=== PATIENT | female | born 1990 | race Hispanic/Latino ===

== ENCOUNTER 2023-08-12 10:33 | Inpatient (IN) | payer BC ==
[2023-08-11 11:53] LABS: Hematocrit 38.2 % (34.9-44.5); Hemoglobin 13.6 g/dL (12.0-15.5); Platelet Count 308 10x3/uL (150-450)
[2023-08-11 12:32] LABS: Syphilis Antibody Nonreactive (Nonreactive); Syphilis Antibody Index 0.03 S/CO (<1.00 Non-Reactive)
[2023-08-11 12:34] LABS: HBsAg Index 0.18 S/CO (0-0.99); Hep B Surf Ag Non-Reactive S/CO (NonReactive)
[2023-08-12 10:42] VITALS: BMI 38.7
[2023-08-12] MEDS ORDERED: Misoprostol 200 MCG TAB PR PRN (10:54)
[2023-08-12] MEDS ORDERED: Promethazine HCl 25 MG/ML VIAL IM PRN ×2 (10:54→11:15)
[2023-08-12] MEDS ORDERED: Tranexamic Acid 1,000 MG/10 ML VIAL IVP PRN (10:54)
[2023-08-12] MEDS ORDERED: Carboprost 250 MCG/ML AMP IM PRN (10:54)
[2023-08-12] MEDS ORDERED: Famotidine/PF 20 mg/2ml Vial SLOW IVP PRN (10:54)
[2023-08-12] MEDS ORDERED: hydrALAZINE 20 MG/ML VIAL SLOW IVP PRN ×2 (10:54→13:24)
[2023-08-12] MEDS ORDERED: Bicitra 30 ML UDCUP PO PRN (10:54)
[2023-08-12] MEDS ORDERED: Ondansetron PF 4 MG/2 ML Vial IVP PRN ×3 (10:54→11:15)
[2023-08-12] MEDS ORDERED: Oxytocin 30 units/NS 500 ML 500 ML IV SCH (11:00)
[2023-08-12] MEDS ORDERED: CEFAZOLIN 2 GM in Sodium Chloride 0.9% 100 ML IVPB SCH (11:00)
[2023-08-12] MEDS ORDERED: Naloxone HCl 0.4 mg/ml Vial IVP PRN ×2 (11:15)
[2023-08-12] MEDS ORDERED: Communication Order-Pharmacy FS SCH (11:15)
[2023-08-12] MEDS ORDERED: Ketorolac Tromethamine 30 MG (1 mL) VIAL IVP SCH (11:15)
[2023-08-12] MEDS ORDERED: fentaNYL 50 mcg/mL 1 mL Vial SLOW IVP PRN (11:15)
[2023-08-12] MEDS ORDERED: HYDROmorphone 0.5 MG/0.5 ML SYRINGE SLOW IVP PRN (11:15)
[2023-08-12] MEDS ORDERED: Moisturizing Cream (Eucerin) 113 GM JAR TOP PRN (11:15)
[2023-08-12] MEDS ORDERED: diphenhydrAMINE 50 MG/ML VIAL IVP PRN (11:15)
[2023-08-12] MEDS ORDERED: Meperidine HCl/PF 25 MG (1 mL) VIAL SLOW IVP PRN (11:15)
[2023-08-12] MEDS ORDERED: Naloxone HCl 0.4 mg/ml Vial IV PRN (11:15)
[2023-08-12] MEDS ORDERED: Bisacodyl 10 MG SUPP PR PRN (13:24)
[2023-08-12] MEDS ORDERED: Acetaminophen 325 MG TAB PO PRN (13:24)
[2023-08-12] MEDS ORDERED: Lanolin Ointment 7 GM TUBE TOP PRN (13:24)
[2023-08-12] MEDS ORDERED: diphenhydrAMINE 25 MG CAP PO PRN (13:24)
[2023-08-12] MEDS: fentaNYL 50 mcg/mL 1 mL Vial ONE (15:36)
[2023-08-12] MEDS: Ondansetron PF 4 MG/2 ML Vial ONE (15:36)
[2023-08-12] MEDS: Oxytocin 10 UNITS/ML VIAL ONE ×2 (15:36→15:37)
[2023-08-12] MEDS: Morphine PF 10 MG/10 ML VIAL ONE (15:36)
[2023-08-12] MEDS: Ketorolac Tromethamine 30 MG (1 mL) VIAL IVP PRN (15:36)
[2023-08-12] MEDS: Phenylephrine 10 MG/ML VIAL ONE (15:36)
[2023-08-12] MEDS: Dexamethasone 4 mg/ml Vial ONE (15:36)
[2023-08-12] MEDS: Docusate 100 MG CAP PO SCH (22:23)
[2023-08-12] MEDS ORDERED: HYDROcodone/Acetaminophen 5/325 mg Tablet PO PRN (23:15)
[2023-08-13 03:56] LABS: Hematocrit 34.6 % (34.9-44.5); Hemoglobin 12.2 g/dL (12.0-15.5); Mean Corpuscular HGB CONC 35.3 g/dL (32.0-36.0); Mean Corpuscular Hemoglobin 31.7 pg (27.0-33.0); Mean Corpuscular Volume 89.9 fl (81.6-98.3); Mean Platelet Volume 9.1 fl (7.4-10.4); Platelet Count 284 10x3/uL (150-450); RBC Distribution Width 13.2 % (11.5-14.5); Red Blood Cell (RBC) Count 3.85 10x6/uL (3.90-5.03); White Blood Cell (WBC) Count 12.7 10x3/uL (3.5-10.5)
[2023-08-13] MEDS: Ferrous Sulfate 325 MG TAB PO SCH (06:29)
[2023-08-13] MEDS: HYDROcodone/Acetaminophen 5/325 mg Tablet PO PRN (08:30)
[2023-08-13] MEDS: Boostrix 0.5 ML (Tdap) VIAL (>/=7 yrs of age) IM ONE (08:32)
[2023-08-13] MEDS: Furosemide 20 MG TAB PO SCH (11:50)
[2023-08-13] MEDS: Benzocaine/Menthol 1 LOZ LOZ PO PRN (12:22)
[2023-08-13] MEDS: Ibuprofen 800 MG TAB PO SCH (21:02)
[2023-08-13] MEDS: Simethicone Chewable 80 MG TAB PO PRN (22:43)
[2023-08-14 13:29] VITALS: BP 139/83; TEMP 98.9
== END 2023-08-14 13:15 | disposition home or self-care (01) | DRG 788 ==
LOC: CSHLD 10:33 → CSHPP 15:50
PROVIDERS: ADMIT Obstetrics & Gynecology; ATTEND Obstetrics & Gynecology
PROC: 10D00Z1 Extraction of Products of Conception, Low, Open Approach (ICD-10-PCS; principal; 2023-08-12)
DX: O24.425 Gestational diabetes mellitus in childbirth, controlled by oral hypoglycemic drugs (principal); O13.4 Gestational [pregnancy-induced] hypertension without significant proteinuria, complicating childbirth; O36.63X0 Maternal care for excessive fetal growth, third trimester, not applicable or unspecified; O99.824 Streptococcus B carrier state complicating childbirth; Z3A.39 39 weeks gestation of pregnancy; Z37.0 Single live birth; O34.13 Maternal care for benign tumor of corpus uteri, third trimester
CPT/HCPCS: 36416; 85014; 85018; 85027; 85049; 86780; 86850; 86900; 86901; 87340; J1100; J1885; J2274; J2371; J2405; J2590; J3010